=== PATIENT | female | born 1995 | race Caucasian/White ===

== ENCOUNTER 2017-03-29 18:58 | Emergency (ER) | payer OTHER ==
[2017-03-29 22:08] LABS: Urine Appearance Cloudy; Urine Blood 3+ (Negative); Urine Color Yellow; Urine Ketones Negative (Negative); Urine Protein Negative (Negative); Urine Specific Gravity 1.021 (1.010-1.030); Urine Urobilinogen Negative (Negative)
[2017-03-29] MEDS ORDERED: Sulfamethox/Trimethoprim DS 800/160* TAB PO ONE (22:22)
--- NOTE | 2017-03-29 23:15 | ED ---
Jessa Mason Thomas, scribed for Charan Avery MD on 03/29/17 at 2309 . Complex/Multi-Sys Presentation - HPI Summary HPI Summary: The patient is a 21 year old female presenting with irregular menstruation described as multiple periods in a row for the last month. Her last normal period was between one and two months ago. She reports when I pee I need to concentrate. She is an [employer] student and she has been stressed recently. She is not on control and she is sexually active. She was evaluated at [facility] two weeks ago. She is on Lexapro for anxiety and depression. - History Of Current Complaint Chief Complaint: EDVaginalBleeding Time Seen by Provider: 03/29/17 22:07 Hx Obtained From: Patient Onset/Duration: Lasting Weeks - one month, Still Present Timing: Intermittent, Lasting: Severity Currently: Mild Location: Negative Alleviating Factor(s): None - Allergies/Home Medications Allergies/Adverse Reactions: Allergies Allergy/AdvReac Type Severity Reaction Status Date / Time No Known Allergies Allergy Verified 03/29/17 19:19 PMH/Surg Hx/FS Hx/Imm Hx Endocrine/Hematology History: Denies: Hx Diabetes Psychiatric History: Reports: Hx Anxiety, Hx Depression Infectious Disease History: No Infectious Disease History: Denies: Traveled Outside the [place] in Last 30 Days - Family History Known Family History: Positive: Other - Patient denies relevant FHx - Social History Alcohol Use: Weekly Substance Use Type: Reports: Marijuana Smoking Status (MU): Light Every Day Tobacco Smoker Review of Systems Negative: Fever Positive: other - Vaginal bleeding All Other Systems Reviewed And Are Negative: Yes Physical Exam - Summary Physical Exam Summary: VITAL SIGNS: Reviewed. GENERAL: Patient is a well-developed and nourished FEMALE who is lying comfortable in the stretcher. Patient is not in any acute respiratory distress. HEAD AND FACE: No signs of trauma. No ecchymosis, hematomas or skull depressions. No sinus tenderness. EYES: PERRLA, EOMI x 2, No injected conjunctiva, no nystagmus. EARS: Hearing grossly intact. Ear canals and tympanic membranes are within normal limits. MOUTH: Oropharynx within normal limits. NECK: Supple, trachea is midline, no adenopathy, no JVD, no carotid bruit, no c- spine tenderness, neck with full ROM. CHEST: Symmetric, no tenderness at palpation LUNGS: Clear to auscultation bilaterally. No wheezing or crackles. CVS: Regular rate and rhythm, S1 and S2 present, no murmurs or gallops appreciated. ABDOMEN: Soft, non-tender. No signs of distention. No rebound no guarding, and no masses palpated. Bowel sounds are normal. EXTREMITIES: FROM in all major joints, no edema, no cyanosis or clubbing. NEURO: Alert and oriented x 3. No acute neurological deficits. Speech is normal and follows commands. SKIN: Dry and warm Triage Information Reviewed: Yes Vital Signs On Initial Exam: Initial Vitals Temp Pulse Resp BP Pulse Ox 98.1 F 76 18 131/88 100 03/29/17 19:16 03/29/17 19:16 03/29/17 19:16 03/29/17 19:16 03/29/17 19:16 Vital Signs Reviewed: Yes Diagnostics - Vital Signs Vital Signs Temp Pulse Resp BP Pulse Ox 03/29/17 21:17 98.1 F 57 16 129/71 98 03/29/17 19:16 98.1 F 76 18 131/88 100 - Laboratory Lab Results: Lab Results 03/29/17 03/29/17 Range/Units 21:25 22:00 Beta HCG, Quant < 0.60 mIU/mL Urine Color Yellow Urine Appearance Cloudy Urine pH 7.0 (5-9) Ur Specific [place] 1.021 (1.010-1.030) Urine Protein Negative (Negative) Urine Ketones Negative (Negative) Urine Blood 3+ H (Negative) Urine Nitrate Negative (Negative) Urine Bilirubin Negative (Negative) Urine Urobilinogen Negative (Negative) Ur Leukocyte Esterase Negative (Negative) Urine WBC (Auto) Trace(0-5/hpf) (Absent) Urine RBC (Auto) 3+(>10/hpf) H (Absent) Ur Squamous Epith Cells Present H (Absent) Amorphous Crystals Present H (Absent) Urine Bacteria Absent (Absent) Urine Glucose Negative (Negative) Lab Statement: Any lab studies that have been ordered have been reviewed, and results considered in the medical decision making process. Complex Multi-Symp Course/Dx Assessment/Plan: The patient is a 21 year old female presenting with irregular menstruation described as multiple periods in a row for the last month. Urinalysis is contaminated, but I will treat for UTI. Beta HCG is less than 0.6. She is discharged home with [facility] follow up. - Diagnoses Provider Diagnoses: Dysfunctional uterine bleeding, UTI (urinary tract infection) Discharge - Discharge Plan Condition: Stable Disposition: HOME Prescriptions: Sulfamethox/Trimethoprim DS* [Bactrim DS 800/160 TAB*] 1 tab PO BID #6 tab Patient Education Materials: Dysfunctional Uterine Bleeding (ED), Urinary Tract Infection in Women (ED) Referrals: [facility] PHYSICIAN REFERRAL [Outside] - [facility] - If Needed Rosendo Naylor MD [Medical Doctor] - 3 Days Additional Instructions: Follow up with an [facility] in three days. I have given you a referral to Dr. Naylor, or you may use the [facility] Physician Referral Service to find and OBGYN and make an appointment. Return to the emergency department for any new or worsening symptoms. The documentation as recorded by the Jessa thorpe Thomas accurately reflects the service I personally performed and the decisions made by me, Charan Avery MD.
[2017-03-30 00:04] VITALS: BP 144/77
== END 2017-03-29 23:05 | disposition home or self-care (01) ==
LOC: ED 18:58
DX: N93.8 Other specified abnormal uterine and vaginal bleeding (principal); N39.0 Urinary tract infection, site not specified; F17.200 Nicotine dependence, unspecified, uncomplicated
CPT/HCPCS: 36415; 81003; 81015; 84702; 99282; A9270-GY